=== PATIENT | male | born 1965 | race African-American/Black ===

== ENCOUNTER 2017-01-19 11:25 | Emergency (ER) | payer OTHER ==
[~2017-01-19] VITALS: Ht 180.3 cm; Wt 74.8 kg
[~2017-01-19 11:25] MED LIST: METO50TE2 PO; ORE25 PO; POTA20TE62 PO
[2017-01-19 11:54] VITALS: BP 141/85
--- NOTE | 2017-01-19 14:20 | NUR ---
PATIENT LEFT WITHOUT BEING SEEN BY DR. CLIFFORD. NO FURTHER CARE PROVIDED FOR PATIENT.
== END 2017-01-19 14:20 | disposition left against medical advice (07) ==
LOC: MED 11:25
DX: M79.642 Pain in left hand (principal); Z53.21 Procedure and treatment not carried out due to patient leaving prior to being seen by health care provider
CPT/HCPCS: 73130